=== PATIENT | female | born 1930 | race Caucasian/White ===

== ENCOUNTER 2020-06-25 19:58 | Emergency (ER) | payer OTHER ==
[~2020-06-25] VITALS: Ht 154.9 cm; Wt 58.1 kg
[2020-06-25 20:30] VITALS: Ht 154.9 cm; Wt 58.1 kg
[2020-06-25 22:19] VITALS: BP 136/81
== END 2020-06-25 22:39 | disposition home or self-care (01) ==
LOC: ED 19:58
DX: S52.602A Unspecified fracture of lower end of left ulna, initial encounter for closed fracture (principal); S52.502A Unspecified fracture of the lower end of left radius, initial encounter for closed fracture; X58.XXXA Exposure to other specified factors, initial encounter; Y93.89 Activity, other specified; Y92.89 Other specified places as the place of occurrence of the external cause; Y99.8 Other external cause status